=== PATIENT | male | born 1960 | race Caucasian/White ===

== ENCOUNTER → 2017-11-06 | Outpatient (CLI) | payer OTHER | LOC: MHCPAIN 12:37 | DX: G89.29 Other chronic pain (principal); M79.2 Neuralgia and neuritis, unspecified; M79.1 Myalgia; M19.90 Unspecified osteoarthritis, unspecified site; M54.9 Dorsalgia, unspecified | CPT/HCPCS: G0463 ==

== ENCOUNTER → 2017-12-18 | Outpatient (CLI) | payer OTHER | LOC: MHCPAIN 12:05 | DX: G89.29 Other chronic pain (principal); M79.2 Neuralgia and neuritis, unspecified; M79.1 Myalgia | CPT/HCPCS: G0463 ==

== ENCOUNTER → 2018-01-15 | Outpatient (CLI) | payer SELFPAY | LOC: MHCPAIN 12:13 | DX: G89.29 Other chronic pain (principal); M54.6 Pain in thoracic spine; M54.5 Low back pain; M25.511 Pain in right shoulder; M25.512 Pain in left shoulder; F17.210 Nicotine dependence, cigarettes, uncomplicated | CPT/HCPCS: G0463 ==

== ENCOUNTER → 2018-02-14 | Outpatient (CLI) | payer SELFPAY | LOC: MHCPAIN 13:04 | DX: G89.29 Other chronic pain (principal); M79.2 Neuralgia and neuritis, unspecified; M79.1 Myalgia | CPT/HCPCS: G0463 ==

== ENCOUNTER → 2018-08-06 | Outpatient (CLI) | payer OTHER ==
[~2018-08-06] MED LIST: PERCOCET 325 MG1 TA2 PO; ULTRAM 50MG TAB50 MG PO; ZOCOR 20MG20 MG PO
== END ==
LOC: MHCPAIN 09:18
DX: G89.29 Other chronic pain (principal); M79.2 Neuralgia and neuritis, unspecified
CPT/HCPCS: G0463

== ENCOUNTER 2018-08-07 09:05 | Day surgery (SDC) | payer OTHER ==
[2018-08-07] VITALS (7 sets, daily range): BP systolic 92–113; BP diastolic 54–80; PULSE 52–97; TEMP 97.7–98.1
[~2018-08-07] VITALS: Ht 149.9 cm; Wt 63.0 kg
[2018-08-07] MEDS ORDERED: PERCOCET 325 MG1 TA2 PO (09:54)
[2018-08-07] MEDS ORDERED: ULTRAM 50MG TAB50 MG PO (09:54)
[2018-08-07] MEDS ORDERED: ZOCOR 20MG20 MG PO (09:55)
== END 2018-08-07 15:20 | disposition home or self-care (01) ==
LOC: SDCO 09:05
DX: N20.1 Calculus of ureter (principal); F17.210 Nicotine dependence, cigarettes, uncomplicated
CPT/HCPCS: C1769; C1894; C2617; J0690; J1100; J1885; J2270; J2405; J2704; J3010; J7120; Q9967

== ENCOUNTER → 2018-10-30 | Outpatient (CLI) | payer MEDICAID, OTHER | LOC: MHCPAIN 09:23 | DX: G89.29 Other chronic pain (principal); M54.12 Radiculopathy, cervical region; R51 Headache; M47.812 Spondylosis without myelopathy or radiculopathy, cervical region | CPT/HCPCS: G0463 ==

== ENCOUNTER → 2018-12-05 | Outpatient (CLI) | payer MEDICAID | LOC: COL.RAD 09:51 | DX: M17.11 Unilateral primary osteoarthritis, right knee (principal); M11.261 Other chondrocalcinosis, right knee ==

== ENCOUNTER 2018-12-27 15:00 | Outpatient (RCR) | payer MEDICAID | END 2018-12-27 15:47 | disposition home or self-care (01) | LOC: WSC 15:00 | DX: M47.22 Other spondylosis with radiculopathy, cervical region (principal); M48.02 Spinal stenosis, cervical region ==

== ENCOUNTER → 2019-01-22 | Outpatient (CLI) | payer MEDICAID | LOC: MHCPAIN 09:35 | DX: G89.29 Other chronic pain (principal); M53.3 Sacrococcygeal disorders, not elsewhere classified; M50.90 Cervical disc disorder, unspecified, unspecified cervical region; M54.12 Radiculopathy, cervical region | CPT/HCPCS: G0463 ==

== ENCOUNTER → 2019-02-21 | Outpatient (CLI) | payer MEDICAID | LOC: COL.RAD 13:56 | DX: Z13.89 Encounter for screening for other disorder (principal); R10.32 Left lower quadrant pain ==

== ENCOUNTER 2019-03-19 10:00 | Outpatient (RCR) | payer MEDICAID | END 2019-05-07 | disposition home or self-care (01) | LOC: WSC | DX: M53.3 Sacrococcygeal disorders, not elsewhere classified (principal); G89.29 Other chronic pain; M54.5 Low back pain; R10.9 Unspecified abdominal pain ==

== ENCOUNTER → 2019-04-23 | Outpatient (CLI) | payer MEDICAID | LOC: MHCPAIN 09:23 | DX: G89.29 Other chronic pain (principal); M47.817 Spondylosis without myelopathy or radiculopathy, lumbosacral region; M53.3 Sacrococcygeal disorders, not elsewhere classified | CPT/HCPCS: G0463 ==

== ENCOUNTER 2019-04-29 16:11 | Emergency (ER) | payer MEDICAID ==
[~2019-04-29] VITALS: Ht 149.9 cm; Wt 63.6 kg
[2019-04-29 16:18] VITALS: BP 127/74; TEMP 97.6
[2019-04-29 17:07] LABS: STREP SCREEN NEGATIVE
[2019-04-29 17:41] VITALS: PULSE 93
== END 2019-04-29 17:39 | disposition home or self-care (01) ==
LOC: COL.ER 16:11
PROVIDERS: Emergency Medicine
DX: J06.9 Acute upper respiratory infection, unspecified (principal); E78.5 Hyperlipidemia, unspecified; Z87.442 Personal history of urinary calculi

== ENCOUNTER 2019-07-12 09:30 | Outpatient (RCR) | payer MEDICAID | END 2019-08-07 | disposition home or self-care (01) | LOC: WSC | DX: M53.3 Sacrococcygeal disorders, not elsewhere classified (principal); M47.817 Spondylosis without myelopathy or radiculopathy, lumbosacral region; Z98.890 Other specified postprocedural states ==

== ENCOUNTER → 2019-07-22 | Outpatient (CLI) | payer MEDICAID | LOC: MHCPAIN 09:52 | DX: G89.29 Other chronic pain (principal); M47.817 Spondylosis without myelopathy or radiculopathy, lumbosacral region; M53.3 Sacrococcygeal disorders, not elsewhere classified | CPT/HCPCS: G0463 ==

== ENCOUNTER → 2019-09-25 | Outpatient (CLI) | payer MEDICAID ==
[~2019-09-25] VITALS: Ht 149.9 cm; Wt 64.7 kg
[~2019-09-25] MED LIST changes: +FLONASEALLERGY NS; +LIPITOR20 MG PO; +NAPROXEN 3375 MG/TAB PO; +TYLENOL 325MG325 MG PO
[2019-09-25 06:38] VITALS: BP 114/62; PULSE 95
[2019-09-25 08:55] VITALS: BP 115/74; PULSE 73
[2019-09-25 08:57] VITALS: BP 109/63; PULSE 81
[2019-09-25 08:59] VITALS: BP 102/65; PULSE 79
== END ==
LOC: COL.CARD 09-23 06:30
DX: I20.8 Other forms of angina pectoris (principal)
CPT/HCPCS: A9500; J2785

== ENCOUNTER → 2019-10-21 | Outpatient (CLI) | payer MEDICAID | LOC: MHCPAIN 09:37 | DX: M53.3 Sacrococcygeal disorders, not elsewhere classified (principal); M47.817 Spondylosis without myelopathy or radiculopathy, lumbosacral region; F17.210 Nicotine dependence, cigarettes, uncomplicated | CPT/HCPCS: G0463 ==

== ENCOUNTER 2019-11-15 13:00 | Outpatient (RCR) | payer MEDICAID | END 2019-12-25 13:03 | disposition home or self-care (01) | LOC: WSC 13:00 | DX: M53.3 Sacrococcygeal disorders, not elsewhere classified (principal); G89.4 Chronic pain syndrome ==

== ENCOUNTER → 2020-02-18 | Outpatient (CLI) | payer MEDICAID | LOC: MHCPAIN 08:48 | DX: M54.5 Low back pain (principal); M53.3 Sacrococcygeal disorders, not elsewhere classified; G89.29 Other chronic pain | CPT/HCPCS: G0463 ==

== ENCOUNTER 2020-03-23 13:51 | Emergency (ER) | payer MEDICAID ==
[~2020-03-23] VITALS: Ht 149.9 cm; Wt 63.6 kg
[2020-03-23 14:01] VITALS: BP 129/82; TEMP 98.5
[2020-03-23] MEDS ORDERED: TOPROL XL 25MG25 MG PO (14:51)
[2020-03-23] MEDS ORDERED: NORCO 325 MG-51 TAB PO (14:57)
[2020-03-23 15:10] VITALS: PULSE 84
== END 2020-03-23 15:12 | disposition home or self-care (01) ==
LOC: COL.ER 13:51
DX: S86.912A Strain of unspecified muscle(s) and tendon(s) at lower leg level, left leg, initial encounter (principal); Z87.442 Personal history of urinary calculi

== ENCOUNTER → 2020-05-20 | Outpatient (CLI) | payer MEDICAID ==
[~2020-05-20] MED LIST changes: +NORCO 325 MG-51 TAB PO; +TOPROL XL 25MG25 MG PO
== END ==
LOC: MHCPAIN 08:35
DX: M47.817 Spondylosis without myelopathy or radiculopathy, lumbosacral region (principal); M54.5 Low back pain; M53.3 Sacrococcygeal disorders, not elsewhere classified; G89.29 Other chronic pain
CPT/HCPCS: G0463

== ENCOUNTER → 2020-06-03 | Outpatient (CLI) | payer MEDICAID ==
[~2020-06-03] MED LIST changes: +PREDNISONE20 MG PO
== END ==
LOC: COL.RAD 12:27
DX: M47.816 Spondylosis without myelopathy or radiculopathy, lumbar region (principal); M48.061 Spinal stenosis, lumbar region without neurogenic claudication

== ENCOUNTER 2020-06-12 15:44 | Emergency (ER) | payer MEDICAID ==
[~2020-06-12] VITALS: Ht 160 cm; Wt 61.4 kg
[~2020-06-12 15:44] MED LIST changes: -PREDNISONE20 MG PO
[2020-06-12 16:25] VITALS: TEMP 99.1
[2020-06-12] MEDS ORDERED: PREDNISONE20 MG PO (19:39)
[2020-06-12] MEDS ORDERED: NORCO 325 MG-51 TAB PO (19:39)
[2020-06-12 19:55] VITALS: BP 115/76
[2020-06-12 20:12] VITALS: PULSE 102
== END 2020-06-12 20:12 | disposition home or self-care (01) ==
LOC: COL.ER 15:44
DX: M10.042 Idiopathic gout, left hand (principal); E78.5 Hyperlipidemia, unspecified

== ENCOUNTER 2020-07-21 10:30 | Outpatient (RCR) | payer MEDICAID ==
[~2020-07-21 10:30] MED LIST changes: +PREDNISONE20 MG PO
== END 2020-09-06 | disposition home or self-care (01) ==
LOC: WSC
DX: M47.816 Spondylosis without myelopathy or radiculopathy, lumbar region (principal)

== ENCOUNTER → 2020-10-14 | Outpatient (CLI) | payer MEDICAID | LOC: MHCPAIN 09:54 | DX: M47.817 Spondylosis without myelopathy or radiculopathy, lumbosacral region (principal); M54.16 Radiculopathy, lumbar region; G89.29 Other chronic pain | CPT/HCPCS: G0463 ==

== ENCOUNTER → 2021-01-05 | Outpatient (CLI) | payer MEDICAID | LOC: MHCPAIN 09:55 | DX: M47.812 Spondylosis without myelopathy or radiculopathy, cervical region (principal); M54.2 Cervicalgia; M47.817 Spondylosis without myelopathy or radiculopathy, lumbosacral region; M54.5 Low back pain | CPT/HCPCS: G0463 ==

== ENCOUNTER → 2021-04-13 | Outpatient (CLI) | payer MEDICAID | LOC: MHCPAIN 09:36 | DX: M47.817 Spondylosis without myelopathy or radiculopathy, lumbosacral region (principal); M54.16 Radiculopathy, lumbar region; M53.3 Sacrococcygeal disorders, not elsewhere classified | CPT/HCPCS: G0463 ==

== ENCOUNTER → 2021-04-29 | Outpatient (CLI) | payer MEDICAID | LOC: MHCPAIN 09:41 | DX: M47.817 Spondylosis without myelopathy or radiculopathy, lumbosacral region (principal); M54.16 Radiculopathy, lumbar region | CPT/HCPCS: J1100; Q9967 ==

== ENCOUNTER → 2021-07-13 | Outpatient (CLI) | payer MEDICAID | LOC: MHCPAIN 10:03 | DX: M47.817 Spondylosis without myelopathy or radiculopathy, lumbosacral region (principal); M54.50 Low back pain, unspecified; M53.3 Sacrococcygeal disorders, not elsewhere classified | CPT/HCPCS: G0463 ==

== ENCOUNTER → 2021-08-05 | Outpatient (CLI) | payer MEDICAID | LOC: MHCPAIN 09:27 | DX: M47.817 Spondylosis without myelopathy or radiculopathy, lumbosacral region (principal); M54.50 Low back pain, unspecified; M53.3 Sacrococcygeal disorders, not elsewhere classified ==

== ENCOUNTER → 2021-10-12 | Outpatient (CLI) | payer MEDICAID | LOC: MHCPAIN 10:39 | DX: M47.896 Other spondylosis, lumbar region (principal); M53.3 Sacrococcygeal disorders, not elsewhere classified | CPT/HCPCS: G0463 ==

== ENCOUNTER 2022-01-11 14:04 | Outpatient (RCR) | payer MEDICAID | END 2022-02-01 | LOC: WSPT | DX: M79.661 Pain in right lower leg (principal) ==

== ENCOUNTER → 2022-02-08 | Outpatient (CLI) | payer MEDICAID | LOC: MHCPAIN 11:45 | DX: M47.896 Other spondylosis, lumbar region (principal); M53.3 Sacrococcygeal disorders, not elsewhere classified; M54.2 Cervicalgia | CPT/HCPCS: G0463 ==

== ENCOUNTER 2022-03-21 08:37 | Emergency (ER) | payer MEDICAID ==
[~2022-03-21] VITALS: Ht 144.8 cm; Wt 61.4 kg
[2022-03-21 08:56] VITALS: TEMP 97.9
[2022-03-21 09:40] VITALS: BP 136/88; PULSE 90
== END 2022-03-21 09:40 | disposition home or self-care (01) ==
LOC: COL.ER 08:37
DX: M25.562 Pain in left knee (principal); R60.0 Localized edema; F17.210 Nicotine dependence, cigarettes, uncomplicated

== ENCOUNTER 2022-05-14 09:56 | Emergency (ER) | payer MEDICAID ==
[2022-05-14 10:03] VITALS: TEMP 98
[2022-05-14 10:41] LABS: BASO # 0.1 K/mm3 (0.0-0.2); BASO % 1.1 % (0.0-2.0); EOS # 0.3 K/mm3 (0.0-0.7); EOS % 3.7 % (0.0-4.0); GRAN % 54.9 % (42.2-75.2); HEMATOCRIT 47.5 % (42.0-52.0); HEMOGLOBIN 16.1 g/dl (13.5-18.0); LYMPH # 2.7 K/mm3 (1.2-3.4); LYMPH % 29.2 % (20.0-51.0); MEAN CELL VOLUME 94 fl (80.0-100.0); MEAN CORPUSCULAR HEMOGLOBIN 32 pg (27-31); MEAN CORPUSCULAR HGB CONC 34 g/dl (33.0-37.0); MEAN PLATELET VOLUME 12.5 fl (7.4-10.4); MONO % 10.9 % (1.7-9.3); PLATELET COUNT 175 K/mm3 (130-400); RED BLOOD COUNT 5.06 M/mm3 (4.20-5.60); REDCELL DISTRIBUTION WIDTH-CV 12.6 % (11.5-14.5)
[2022-05-14 11:08] LABS: ALBUMIN 4.1 gm/dL (3.4-4.8); BILIRUBIN,TOTAL 0.6 mg/dL (0.2-1.2); CALCIUM 9.4 mg/dL (8.4-10.2); CREATININE, serum 0.82 mg/dL (0.72-1.25); POTASSIUM 4.7 mmol/L (3.5-4.5); TOTAL PROTEIN 7.5 gm/dL (6.2-8.1)
[2022-05-14 11:09] LABS: TROPONIN-I 0.02 ng/mL (0.00-0.033)
[2022-05-14 11:32] VITALS: BP 135/78; PULSE 86
== END 2022-05-14 11:57 | disposition home or self-care (01) ==
LOC: COL.ER 09:56
PROVIDERS: Emergency Medicine
DX: R07.89 Other chest pain (principal)
CPT/HCPCS: J1885; J7030

== ENCOUNTER → 2022-05-16 | Outpatient (CLI) | payer MEDICAID ==
[~2022-05-16] MED LIST changes: +FLEXERIL 1010 MG/TAB PO
== END ==
LOC: MHCPAIN 09:48
DX: M47.812 Spondylosis without myelopathy or radiculopathy, cervical region (principal); M54.2 Cervicalgia; M54.59 Other low back pain; M47.896 Other spondylosis, lumbar region
CPT/HCPCS: G0463

== ENCOUNTER 2022-05-20 10:55 | Emergency (ER) | payer MEDICAID ==
[~2022-05-20] VITALS: Ht 144.8 cm; Wt 65.9 kg
[~2022-05-20 10:55] MED LIST changes: -FLEXERIL 1010 MG/TAB PO
[2022-05-20 11:16] VITALS: TEMP 98.7
[2022-05-20] MEDS ORDERED: NORCO 325 MG-51 TAB PO (14:03)
[2022-05-20] MEDS ORDERED: FLEXERIL 1010 MG/TAB PO (14:03)
[2022-05-20 14:28] VITALS: BP 132/90; PULSE 80
== END 2022-05-20 14:28 | disposition home or self-care (01) ==
LOC: COL.ER 10:55
DX: M54.31 Sciatica, right side (principal); F17.200 Nicotine dependence, unspecified, uncomplicated; X50.0XXA Overexertion from strenuous movement or load, initial encounter
CPT/HCPCS: J1885; J2360

== ENCOUNTER 2022-05-26 13:50 | Emergency (ER) | payer MEDICAID ==
[~2022-05-26] VITALS: Ht 144.8 cm; Wt 63.6 kg
[~2022-05-26 13:50] MED LIST changes: +FLEXERIL 1010 MG/TAB PO
[2022-05-26 13:56] VITALS: BP 117/90; PULSE 105; TEMP 97.8
[2022-05-26] MEDS ORDERED: NORCO 325 MG-51 TAB PO ×2 (16:49)
== END 2022-05-26 16:33 | disposition left against medical advice (07) ==
LOC: COL.ER 13:50
DX: M79.651 Pain in right thigh (principal); E66.9 Obesity, unspecified

== ENCOUNTER 2022-05-31 08:59 | Emergency (ER) | payer MEDICAID ==
[~2022-05-31] VITALS: Ht 144.8 cm; Wt 63.6 kg
[2022-05-31 09:35] VITALS: BP 127/87; TEMP 98.2
[2022-05-31 10:57] VITALS: PULSE 98
== END 2022-05-31 11:00 | disposition home or self-care (01) ==
LOC: COL.ER 08:59
DX: M54.10 Radiculopathy, site unspecified (principal); F17.210 Nicotine dependence, cigarettes, uncomplicated
CPT/HCPCS: J1885; J2360

== ENCOUNTER → 2022-11-15 | Outpatient (CLI) | payer MEDICAID | LOC: MHCPAIN 09:48 | DX: M54.50 Low back pain, unspecified (principal); M54.2 Cervicalgia; G89.29 Other chronic pain | CPT/HCPCS: G0463 ==

== ENCOUNTER → 2023-05-16 | Outpatient (CLI) | payer MEDICAID | LOC: MHCPAIN 09:21 | DX: M54.17 Radiculopathy, lumbosacral region (principal); M47.896 Other spondylosis, lumbar region; G89.29 Other chronic pain | CPT/HCPCS: G0463 ==

== ENCOUNTER → 2024-02-21 | Outpatient (CLI) | payer MEDICAID | LOC: MHCPAIN 08:16 | DX: M47.896 Other spondylosis, lumbar region (principal); M54.16 Radiculopathy, lumbar region; G89.29 Other chronic pain | CPT/HCPCS: G0463 ==

== ENCOUNTER → 2024-06-10 | Outpatient (CLI) | payer MEDICAID | LOC: COL.LAB 11:09 → COL.RAD 11:36 → COL.LAB 11:36 | DX: M19.042 Primary osteoarthritis, left hand (principal); M19.032 Primary osteoarthritis, left wrist ==